=== PATIENT | female | born 1985 | race Caucasian/White ===

== ENCOUNTER 2019-09-21 15:28 | Emergency (ER) | payer MEDICARE ==
[~2019-09-21] VITALS: Ht 167.6 cm; Wt 61.4 kg
[2019-09-21 15:42] VITALS: BP 132/90; TEMP 97.8
[2019-09-21] MEDS ORDERED: NORCO 325 MG-51 TAB PO (16:14)
[2019-09-21] MEDS ORDERED: GENTAMICIN EYE D5 ML OD (16:14)
[2019-09-21 16:34] VITALS: PULSE 85
== END 2019-09-21 16:34 | disposition home or self-care (01) ==
LOC: COL.ER 15:28
DX: S05.01XA Injury of conjunctiva and corneal abrasion without foreign body, right eye, initial encounter (principal); W50.4XXA Accidental scratch by another person, initial encounter

== ENCOUNTER 2019-09-23 12:44 | Emergency (ER) | payer MEDICAID ==
[~2019-09-23] VITALS: Ht 167.6 cm; Wt 63.6 kg
[~2019-09-23 12:44] MED LIST: GENTAMICIN EYE D5 ML OD; NORCO 325 MG-51 TAB PO
[2019-09-23 13:20] VITALS: BP 110/74; TEMP 98.4
[2019-09-23] MEDS ORDERED: ACULAR 3 ML3 ML OD (15:15)
[2019-09-23 15:33] VITALS: PULSE 94
== END 2019-09-23 15:35 | disposition home or self-care (01) ==
LOC: COL.ER 12:44
DX: S05.01XA Injury of conjunctiva and corneal abrasion without foreign body, right eye, initial encounter (principal); H10.9 Unspecified conjunctivitis; W22.8XXA Striking against or struck by other objects, initial encounter

== ENCOUNTER 2020-05-29 12:39 | Emergency (ER) | payer MEDICAID ==
[~2020-05-29] VITALS: Ht 167.6 cm; Wt 64.1 kg
[~2020-05-29 12:39] MED LIST changes: +ACULAR 3 ML3 ML OD
[2020-05-29 14:20] VITALS: BP 114/79; PULSE 68
== END 2020-05-29 14:20 | disposition home or self-care (01) ==
LOC: COL.ER 12:39
DX: S93.602A Unspecified sprain of left foot, initial encounter (principal); Z98.51 Tubal ligation status; W19.XXXA Unspecified fall, initial encounter; X50.1XXA Overexertion from prolonged static or awkward postures, initial encounter; Y92.009 Unspecified place in unspecified non-institutional (private) residence as the place of occurrence of the external cause